=== PATIENT | female | born 1950 | race Caucasian/White ===

== ENCOUNTER 2021-07-17 16:50 | Observation (INO) ==
[2021-07-17] MEDS ORDERED: Naloxone 0.4 MG/ML INJ IVP PRN (21:23)
[2021-07-17] MEDS ORDERED: Melatonin 3 MG TABLET PO PRN (21:23)
[2021-07-17] MEDS ORDERED: Ondansetron ODT 4 MG TAB.RAPDIS SL PRN ×2 (21:23→22:08)
[2021-07-17] MEDS ORDERED: cloNIDine HCL 0.1 MG TABLET PO PRN (22:08)
[2021-07-17] MEDS: *HR* HYDROcodone/Acet 7.5/325 mg TABLET PO PRN (22:46)
[2021-07-17] MEDS: Metoprolol 100 MG TABLET PO SCH (23:25)
[2021-07-17] MEDS: DilTIAZem CD (24hr) 120 MG CAP.ER.24H PO SCH (23:25)
[2021-07-17 23:49] LABS: Adenovirus Not Detected (Not Detect); Bordetella Pertussis Not Detected (Not Detect); Chlamydophila pneumoniae Not Detected (Not Detect); Coronavirus 229E Not Detected (Not Detect); Coronavirus HKU1 Not Detected (Not Detect); Coronavirus NL63 Not Detected (Not Detect); Coronavirus OC43 Not Detected (Not Detect); Human Metapneumovirus Not Detected (Not Detect); Human Rhinovirus/Enterovirus DETECTED (Not Detect); Influenza A Subtype 2009 H1 Not Detected (Not Detect); Influenza B Not Detected (Not Detect); Mycoplasma pneumoniae Not Detected (Not Detect); Parainfluenza Virus 1 Not Detected (Not Detect); Parainfluenza Virus 2 Not Detected (Not Detect); Parainfluenza Virus 3 Not Detected (Not Detect); Parainfluenza Virus 4 Not Detected (Not Detect); Respiratory Syncytial Virus Not Detected (Not Detect); SARS-CoV-2 Not Detected (Not Detect)
[2021-07-18] MEDS: Ipratropium/Albuterol Neb 3 ML IH SCH ×5 (00:09→21:37)
[2021-07-18] MEDS: Budesonide/Formoterol 160/4.5 1 PUFF INH IH SCH ×3 (00:09→21:38)
[2021-07-18 01:12] LABS: Hematocrit 33.9 % (35.3-44.9); Hemoglobin 11.1 g/dL (11.5-15.4); Mean Corpuscular HGB Conc 32.7 g/dL (31.6-35.5); Mean Corpuscular Hemoglobin 29.6 pg (28.0-33.3); Mean Corpuscular Volume 90.4 fL (83.0-100.0); Mean Platelet Volume 10.7 fL (9.4-12.4); Platelet Count 275 K/mcL (140-400); Red Blood Count 3.75 M/mcL (3.82-4.97); Red Cell Distribution Width 13.1 % (11.5-14.5); White Blood Count 7.7 K/mcL (4.3-11.1)
[2021-07-18 01:20] LABS: INR 2.6
[2021-07-18 01:25] LABS: Calcium 9.5 mg/dL (8.6-10.3); Magnesium 2.1 mg/dL (1.6-2.6); Phosphorous 3.5 mg/dL (2.7-4.5); Potassium 4.4 mEq/L (3.5-5.1)
[2021-07-18] MEDS: MethylPREDNISolone 40 MG/ML VIAL IVP SCH ×3 (06:13→22:02)
[2021-07-18] MEDS: Metoprolol 100 MG TABLET PO SCH ×2 (08:28→22:01)
[2021-07-18] MEDS ORDERED: Metoprolol 100 MG TABLET PO SCH (09:00)
[2021-07-18] MEDS ORDERED: DilTIAZem CD (24hr) 120 MG CAP.ER.24H PO SCH ×2 (09:00→21:00)
[2021-07-18] MEDS ORDERED: Warfarin perPT PO PRN (18:00)
[2021-07-18] MEDS ORDERED: *HR* Warfarin 4 MG TABLET PO ONE (18:00)
[2021-07-18] MEDS: DilTIAZem CD (24hr) 120 MG CAP.ER.24H PO SCH (22:01)
[2021-07-19] MEDS: Ipratropium/Albuterol Neb 3 ML IH SCH ×3 (04:25→16:29)
[2021-07-19 05:29] LABS: INR 2.5; Prothrombin Time 27.8 Seconds (9.4-12.1)
[2021-07-19] MEDS: MethylPREDNISolone 40 MG/ML VIAL IVP SCH ×2 (06:10→14:31)
[2021-07-19] MEDS: Metoprolol 100 MG TABLET PO SCH (09:23)
[2021-07-19] MEDS: *HR* HYDROcodone/Acet 7.5/325 mg TABLET PO PRN (09:30)
[2021-07-19] MEDS ORDERED: Perflutren Lipid Microsphere 1.3 ML in 0.9 % Sodium Chloride 8.7 ML IVP PRN (10:25)
[2021-07-19] MEDS: Budesonide/Formoterol 160/4.5 1 PUFF INH IH SCH (11:00)
[2021-07-19 14:44] VITALS: BP 127/72; PULSE 86; TEMP 98.1; O2SAT 94
[2021-07-19] MEDS ORDERED: *HR* Warfarin 4 MG TABLET PO ONE (18:00)
== END 2021-07-19 17:10 | disposition home or self-care (01) ==
LOC: 3BNU → SUATTDRO 20:07
PROVIDERS: ADMIT Internal Medicine; ATTEND Registered Nurse

== ENCOUNTER 2021-08-13 03:16 | Inpatient (IN) ==
[2021-08-13] MEDS ORDERED: Naloxone 0.4 MG/ML INJ IVP PRN (09:28)
[2021-08-13] MEDS ORDERED: Ondansetron 4 MG/2 ML VIAL IVP PRN (09:28)
[2021-08-13 10:23] LABS: Basophils % 0.3 %; Eosinophils # 0.1 K/mcL (0.0-0.6); Eosinophils % 0.7 %; Hematocrit 36.6 % (35.3-44.9); Hemoglobin 11.9 g/dL (11.5-15.4); Immature Granulocytes % 0.3 % (0-4); Lymphocytes # 1.4 K/mcL (0.6-4.6); Lymphocytes % 12.7 %; Mean Corpuscular HGB Conc 32.5 g/dL (31.6-35.5); Mean Corpuscular Hemoglobin 29.8 pg (28.0-33.3); Mean Corpuscular Volume 91.5 fL (83.0-100.0); Monocytes # 1.2 K/mcL (0.0-1.3); Monocytes % 10.5 %; Neutrophils # 8.5 K/mcL (1.6-8.9); Platelet Count 327 K/mcL (140-400); Red Cell Distribution Width 13.6 % (11.5-14.5); Segmented Neutrophils % 75.5 %; White Blood Count 11.3 K/mcL (4.3-11.1)
[2021-08-13 10:41] LABS: Albumin 3.9 g/dL (3.5-5.7); Albumin/Globulin Ratio 1.4 (1.1-2.2); Bilirubin,Direct 0.1 mg/dL (0.0-0.2); Bilirubin,Indirect 0.4 mg/dL (0.0-1.0); Bilirubin,Total 0.5 mg/dL (0.3-1.0); Globulin 2.7 g/dL (2.4-3.5); Total Protein 6.6 g/dL (6.4-8.9)
[2021-08-13 10:42] LABS: Calcium 9.5 mg/dL (8.6-10.3); Magnesium 1.5 mg/dL (1.6-2.6); Phosphorous 5.6 mg/dL (2.7-4.5); Potassium 4.8 mEq/L (3.5-5.1)
[2021-08-13 10:44] LABS: INR 1.7; Prothrombin Time 19.1 Seconds (9.4-12.1)
[2021-08-13] MEDS ORDERED: D5% in 0.9% NACL w KCl 20 MEQ/1,000 ML MLS IVC SCH (10:45)
[2021-08-13] MEDS ORDERED: Ipratropium/Albuterol Neb 3 ML IH PRN (14:38)
[2021-08-13] MEDS ORDERED: *HR* Metoprolol 5 MG/5 ML VIAL IVP ONE (16:32)
[2021-08-13] MEDS ORDERED: 0.9 % Sodium Chloride 500 ML IVC ONE (17:07)
[2021-08-13] MEDS ORDERED: *HR* Heparin 5,000 UNIT/ML VIAL IVP PRN ×2 (17:12)
[2021-08-13] MEDS ORDERED: *HR* Heparin 5,000 UNIT/ML VIAL IVP ONE (17:12)
[2021-08-13] MEDS ORDERED: Heparin 25,000UNIT/250ML 1/2NS 25,000 UNIT/250 ML IV.SOLN IVC SCH (17:15)
[2021-08-13 17:47] LABS: Heparin anti-factor XA UFH 0.07 IU/mL (0.30-0.70)
[2021-08-13 17:50] LABS: Activated Partial Thrombo Time 27.1 Seconds (26.0-36.0)
[2021-08-13] MEDS: Metoprolol 100 MG TABLET PO SCH (19:46)
[2021-08-13] MEDS: Magnesium Oxide 400 MG TABLET PO SCH (19:46)
[2021-08-13] MEDS: DilTIAZem CD (24hr) 120 MG CAP.ER.24H PO SCH (19:46)
[2021-08-14 08:15] LABS: Basophils % 0.6 %; Eosinophils # 0.3 K/mcL (0.0-0.6); Eosinophils % 4.7 %; Hematocrit 36.4 % (35.3-44.9); Hemoglobin 11.7 g/dL (11.5-15.4); Immature Granulocytes % 0.1 % (0-4); Lymphocytes # 1.9 K/mcL (0.6-4.6); Mean Corpuscular HGB Conc 32.1 g/dL (31.6-35.5); Mean Corpuscular Hemoglobin 29.8 pg (28.0-33.3); Mean Corpuscular Volume 92.6 fL (83.0-100.0); Mean Platelet Volume 10.3 fL (9.4-12.4); Monocytes # 0.9 K/mcL (0.0-1.3); Monocytes % 12.8 %; Platelet Count 313 K/mcL (140-400); Red Blood Count 3.93 M/mcL (3.82-4.97); Red Cell Distribution Width 13.8 % (11.5-14.5); Segmented Neutrophils % 55.8 %; White Blood Count 7.2 K/mcL (4.3-11.1)
[2021-08-14] MEDS: Nicotine 14 MG PATCH.TD24 TD SCH (08:18)
[2021-08-14] MEDS: Cholecalciferol (D-3) 1,000 UNIT (25MCG) TABLET PO SCH (08:22)
[2021-08-14] MEDS: Magnesium Oxide 400 MG TABLET PO SCH ×2 (08:22→20:20)
[2021-08-14] MEDS: Metoprolol 100 MG TABLET PO SCH ×2 (08:22→20:20)
[2021-08-14] MEDS: DilTIAZem CD (24hr) 240 MG CAP.ER.24H PO SCH (08:22)
[2021-08-14 08:35] LABS: Calcium 8.8 mg/dL (8.6-10.3); Magnesium 2.4 mg/dL (1.6-2.6); Potassium 4.4 mEq/L (3.5-5.1)
[2021-08-14] MEDS: 0.9 % Sodium Chloride 1,000 ML IVC SCH ×2 (10:23→20:20)
[2021-08-14 14:27] LABS: Heparin anti-factor XA UFH 0.6 IU/mL (0.30-0.70)
[2021-08-14 15:12] LABS: INR 1.5; Prothrombin Time 17.1 Seconds (9.4-12.1)
[2021-08-14] MEDS ORDERED: Warfarin perPT PO PRN (18:00)
[2021-08-14] MEDS ORDERED: *HR* Warfarin 4 MG TABLET PO ONE (18:00)
[2021-08-14] MEDS: DilTIAZem CD (24hr) 120 MG CAP.ER.24H PO SCH (20:20)
[2021-08-14] MEDS ORDERED: Acetaminophen 325 MG TABLET PO ONE (20:34)
[2021-08-15 05:28] LABS: Basophils % 0.3 %; Eosinophils # 0.4 K/mcL (0.0-0.6); Eosinophils % 5.2 %; Hematocrit 30.5 % (35.3-44.9); Immature Granulocytes % 0.3 % (0-4); Lymphocytes % 28.3 %; Mean Corpuscular HGB Conc 31.8 g/dL (31.6-35.5); Mean Corpuscular Hemoglobin 29.3 pg (28.0-33.3); Mean Corpuscular Volume 92.1 fL (83.0-100.0); Mean Platelet Volume 10.4 fL (9.4-12.4); Monocytes # 0.9 K/mcL (0.0-1.3); Monocytes % 12.6 %; Neutrophils # 3.7 K/mcL (1.6-8.9); Platelet Count 280 K/mcL (140-400); Red Blood Count 3.31 M/mcL (3.82-4.97); Red Cell Distribution Width 13.5 % (11.5-14.5); Segmented Neutrophils % 53.3 %; White Blood Count 6.9 K/mcL (4.3-11.1)
[2021-08-15 05:38] LABS: Hemoglobin 9.7 g/dL (11.5-15.4)
[2021-08-15 05:40] LABS: INR 1.4; Prothrombin Time 15.2 Seconds (9.4-12.1)
[2021-08-15 05:51] LABS: Calcium 8.7 mg/dL (8.6-10.3); Potassium 4.5 mEq/L (3.5-5.1)
[2021-08-15] MEDS ORDERED: 0.9 % Sodium Chloride 250 ML IVC ONE (07:32)
[2021-08-15] MEDS: Cholecalciferol (D-3) 1,000 UNIT (25MCG) TABLET PO SCH (08:15)
[2021-08-15] MEDS: DilTIAZem CD (24hr) 240 MG CAP.ER.24H PO SCH (08:15)
[2021-08-15] MEDS: Metoprolol 100 MG TABLET PO SCH (08:15)
[2021-08-15] MEDS: Magnesium Oxide 400 MG TABLET PO SCH (08:15)
[2021-08-15] MEDS: Nicotine 14 MG PATCH.TD24 TD SCH (08:16)
[2021-08-15] MEDS: 0.9 % Sodium Chloride 1,000 ML IVC SCH (11:51)
[2021-08-15] MEDS ORDERED: 0.9 % Sodium Chloride 1,000 ML IVC SCH (12:41)
[2021-08-15] MEDS ORDERED: *HR* HYDROcodone/Acet 5/325 mg TABLET PO ONE (14:04)
[2021-08-15 14:59] VITALS: BP 149/55; PULSE 75; TEMP 98.4; O2SAT 94
[2021-08-15 17:00] LABS: Calcium 8.5 mg/dL (8.6-10.3); Potassium 4.6 mEq/L (3.5-5.1)
[2021-08-15] MEDS ORDERED: *HR* Warfarin 4 MG TABLET PO ONE (18:00)
== END 2021-08-15 18:43 | disposition home or self-care (01) | DRG 389 ==
LOC: 3BNU → SUATTDRO 08:57
PROVIDERS: ADMIT Pharmacist; ATTEND Internal Medicine

== ENCOUNTER 2021-08-30 09:24 | Observation (INO) ==
[2021-08-30] MEDS ORDERED: *HR* Heparin 10,000 UNIT/10 ML VIAL ONE (09:42)
[2021-08-30] MEDS ORDERED: ISOVUE-370 200 ML INFUS..BTL ONE (09:43)
[2021-08-30] MEDS ORDERED: 0.9 % Sodium Chloride 1,000 ML ONE (09:43)
[2021-08-30] MEDS ORDERED: Heparin 1,000 UNITS/500 mL 500 ML ONE (09:43)
[2021-08-30] MEDS ORDERED: Nitroglycerin 1,000 MCG/5 ML VIAL IV ONE (09:43)
[2021-08-30] MEDS ORDERED: *HR* FentaNYL (PF) 100 MCG/2 ML VIAL ONE (10:17)
[2021-08-30] MEDS ORDERED: *HR* Midazolam HCl 2 MG/2 ML VIAL ONE ×2 (10:18→10:33)
[2021-08-30] MEDS ORDERED: ESZOPICLONE 1 MG PO PRN (12:40)
[2021-08-30] MEDS ORDERED: Lidocaine/EPI 1:100k 1% 30 ML VIAL ONE (12:40)
[2021-08-30] MEDS ORDERED: *HR* HYDROcodone/Acet 7.5/325 mg TABLET PO PRN (12:40)
[2021-08-30] MEDS: hydroCHLOROthiazide 25 MG TABLET PO SCH (13:01)
[2021-08-30 16:27] LABS: INR 1.4; Prothrombin Time 15.6 Seconds (9.4-12.1)
[2021-08-30] MEDS ORDERED: *HR* Warfarin 4 MG TABLET PO ONE (18:00)
[2021-08-30] MEDS ORDERED: Warfarin perPT PO PRN (18:00)
[2021-08-30] MEDS ORDERED: DilTIAZem CD (24hr) 120 MG CAP.ER.24H PO SCH (21:00)
[2021-08-30] MEDS: Metoprolol 100 MG TABLET PO SCH (21:21)
[2021-08-30] MEDS: Magnesium Oxide 400 MG TABLET PO SCH (21:23)
[2021-08-31 05:37] LABS: Hematocrit 29.9 % (35.3-44.9); Hemoglobin 9.6 g/dL (11.5-15.4)
[2021-08-31 05:41] LABS: INR 1.2; Prothrombin Time 13.5 Seconds (9.4-12.1)
[2021-08-31 06:02] LABS: BUN/Creatinine Ratio 17 (6-26); Blood Urea Nitrogen 16 mg/dL (8-23); eGFR For African Americans > 60 (> 60); eGFR For Non-African Americans 59 (> 60)
[2021-08-31 06:32] VITALS: BP 116/62; PULSE 60; TEMP 98; O2SAT 97
[2021-08-31] MEDS ORDERED: Nitroglycerin 0.4 MG TAB.SUBL SL PRN (08:40)
[2021-08-31] MEDS: Magnesium Oxide 400 MG TABLET PO SCH (08:45)
[2021-08-31] MEDS: Metoprolol 100 MG TABLET PO SCH (08:45)
[2021-08-31] MEDS: hydroCHLOROthiazide 25 MG TABLET PO SCH (08:45)
[2021-08-31] MEDS ORDERED: Cholecalciferol (D-3) 1,000 UNIT (25MCG) TABLET PO SCH (09:00)
[2021-08-31] MEDS ORDERED: DilTIAZem CD (24hr) 240 MG CAP.ER.24H PO SCH (09:00)
[2021-08-31] MEDS ORDERED: *HR* Warfarin 3 MG TABLET PO SCH (09:00)
[2021-08-31] MEDS ORDERED: *HR* Warfarin 1 MG TABLET PO SCH (09:00)
[2021-08-31] MEDS ORDERED: *HR* Warfarin 4 MG TABLET PO ONE (18:00)
== END 2021-08-31 11:54 | disposition home or self-care (01) ==
LOC: INVDIALAB 09:24 → 3BNU 09:24
PROVIDERS: ADMIT Internal Medicine; ATTEND Internal Medicine